=== PATIENT | male | born 1965 | race Caucasian/White ===

== ENCOUNTER 2018-02-20 11:58 | Emergency (ER) | payer OTHER ==
[2018-02-20] MEDS ORDERED: PROPARACAI/FLUORESCEIN 5 ML OP DROPS OU ONE (12:05)
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
[2018-02-20] MEDS ORDERED: DIPHTH/TETANUS/ACEL. PERTUSSIS IM ONLY ONE (12:10)
[2018-02-20] MEDS ORDERED: LIDOCAINE 2% VISC SLN 15ML UDC PO ONE (13:00)
[2018-02-20 13:02] VITALS: BP 156/120
== END 2018-02-20 13:50 | disposition home or self-care (01) ==
LOC: ER 12:04
DX: S00.81XA Abrasion of other part of head, initial encounter (principal)
CPT/HCPCS: 99283

== ENCOUNTER → 2018-02-20 | Outpatient (CLI) | payer OTHER | LOC: AMB 11:34 | PROVIDERS: ATTEND Nurse Practitioner | DX: T15.82XA Foreign body in other and multiple parts of external eye, left eye, initial encounter (principal); M54.2 Cervicalgia | CPT/HCPCS: A0425; A0429 ==